=== PATIENT | female | born 2000 | race Caucasian/White ===

== ENCOUNTER 2021-03-28 12:49 | Emergency (ER) | payer SELFPAY ==
[2021-03-28 13:04] VITALS: BP 119/70; PULSE 73; RESP 20; TEMP 36.7; O2SAT 98
[2021-03-28 13:04] LABS: RBC Urine None Seen (0-5/HPF)
[2021-03-28 13:05] LABS: Appearance Urine UA CLEAR; Bilirubin Urine UA NEGATIVE (NEGATIVE); Color Urine UA ORANGE; Glucose Urine UA TRACE g/dL (Negative); Ketones Urine UA NEGATIVE (NEGATIVE); Leukocyte Esterase Urine UA 1+ (NEGATIVE); Nitrite Urine UA POSITIVE (Negative); Occult Blood Urine UA NEGATIVE (Negative); Protein Urine UA NEGATIVE (Negative); Specific Gravity Urine UA <=1.005 (1.000-1.035)
[2021-03-28 13:06] LABS: pH Urine UA 6.5 (4.5-8.0)
[2021-03-28 13:08] LABS: Bacteria Urine Few (2-10); Culture Indicated Urine Specimen Cultured; WBC Urine 1-5/HPF (0-5/HPF)
--- NOTE | 2021-03-28 13:15 | ED_ITS ---
HPI - Female Genitourinary <JOY Villarreal - Last Filed: 03/28/21 15:19> General Chief complaint: Urogenital-Female Stated complaint: Very Bad UTI, Nausea Time Seen by Provider: 03/28/21 12:53 Source: patient and family Mode of arrival: Family Vehicle Limitations: no limitations History of Present Illness HPI Narrative: The patient is a 21-year-old female former smoker with history of multiple urinary tract infections who presents with a chief complaint of UTI symptoms for 2 hours. She has taken azo. She has not been on antibiotics for few months, is not exactly sure what she was on several months ago. She states that was in [place]. She states she feels warm but denies any fevers. She does complain of nausea but thinks that might be related to the azo. She denies any muscle aches or chills, but states she feels like she has the shakes. She is eating and drinking well, drinking water throughout my evaluation. She denies any flank or back pain. Denies any vomiting or diarrhea. No specific STI concerns. She complains of dysuria, urgency and frequency as well as bladder pain/spasm. Related Data Home Medications Medication Instructions Recorded Confirmed cranberry [id number] coag 250 tab PO 1-2XD 03/28/21 03/28/21 [Azo Cranberry + Probiotic] phenazopyridine [Azo] 95 mg PO TID PRN 03/28/21 03/28/21 Previous Rx's Medication Instructions Recorded nitrofurantoin monohyd/m-cryst 100 mg PO BID #14 cap 03/28/21 [Macrobid] ondansetron 4 mg PO Q6H PRN #20 tab 03/28/21 Allergies Allergy/AdvReac Type Severity Reaction Status Date / Time No Known Drug Allergies Allergy Verified 03/28/21 13:43 Review of Systems <JOY Villarreal - Last Filed: 03/28/21 15:19> Review of Systems Narrative: GENERAL: Denies chills, fatigue, malaise, fever, sweats. HEENT: Denies sinus pain, ear pain, sore throat, difficulty swallowing, dizziness. RESPIRATORY: Denies dyspnea, cough, wheezing, hemoptysis, sputum. CARDIOVASCULAR: Denies chest pain, palpitations, orthopnea, edema, GASTROINTESTINAL: Denies nausea, vomiting, abdominal pain, diarrhea, constipation, melena. : See HPI MUSCULOSKELETAL: denies weakness, joint pain, or bony pain SKIN: Denies rash, skin lesions, or other NEUROLOGIC: Denies weakness, headache, numbness, change in speech, confusion, seizures, incoordination. PSYCHIATRIC: No concerning psychosocial issues. 12 point review of systems is negative except for those stated above Patient History <Rosa RAFAEL Brand - Last Filed: 03/28/21 15:19> alcohol intake frequency: 0-2 drinks per day Alcohol type: wine Last Alcoholic Drink: yesterday Substance Use Type: marijuana Exam <Rosa [facility]KENNY [facility] - Last Filed: 03/28/21 15:19> Narrative Exam Narrative: GENERAL: This is a well-nourished, well-developed patient, in no acute distress HEAD: Atraumatic. Normocephalic. No temporal or scalp tenderness. EYES: Pupils equal round and reactive. Extraocular motions intact. No scleral icterus. No injection or drainage. ENT: Nose without bleeding, purulent drainage or septal hematoma. Wearing a ma sk Airway patent. NECK: Trachea midline. No JVD or lymphadenopathy. Supple, nontender, no meningeal signs. CARDIOVASCULAR: Regular rate and rhythm RESPIRATORY: Clear to auscultation. Breath sounds equal bilaterally. No wheezes, rales, or rhonchi. No cough. No increased respiratory effort. No accessory muscle use. Speaking full sentences. GASTROINTESTINAL: Abdomen soft, slight pain to suprapubic palpation, nondistended. No hepato-splenomegaly, or palpable masses. No guarding. EXTREMITIES: No clubbing, cyanosis, or edema. No joint tenderness, effusion, or edema noted. BACK: Nontender without deformity or crepitance. No flank tenderness. No CVA tenderness NEURO: AOx3. SKIN: No rash or erythema on visible skin Initial Vital Signs Initial Vital Signs: Vital Signs Temperature 98.0 F 03/28/21 13:04 Pulse Rate 73 03/28/21 13:04 Respiratory Rate 20 03/28/21 13:04 Blood Pressure 119/70 03/28/21 13:04 Pulse Oximetry 98 03/28/21 13:04 <Katheryn Mortensen DO - Last Filed: 04/01/21 07:37> Initial Vital Signs Initial Vital Signs: Vital Signs Temperature 98.0 F 03/28/21 13:04 Pulse Rate 73 03/28/21 13:04 Respiratory Rate 20 03/28/21 13:04 Blood Pressure 119/70 03/28/21 13:04 Pulse Oximetry 98 03/28/21 13:04 Scores <JOY Villarreal - Last Filed: 03/28/21 15:19> GCS [place] coma scale eye opening: Spontaneous [place] coma scale verbal response: Orientated [place] coma scale motor response: Obey commands Amy coma scale total score: 15 Course <RAFAEL Villarreal - Last Filed: 03/28/21 15:19> Orders Ordered: Discontinued Medications Ondansetron HCl (Ondansetron 4 Mg Odt) 4 mg SL NOW ONE Stop: 03/28/21 13:11 Last Admin: 03/28/21 13:22 Dose: 4 mg Documented by: [email or web address] Vital Signs Vital signs: Vital Signs - 8 hr 03/28/21 13:04 Temperature 98.0 F Pulse Rate 73 Respiratory Rate 20 Blood Pressure 119/70 Pulse Oximetry 98 <Katheryn Mortensen DO - Last Filed: 04/01/21 07:37> Orders Ordered: Discontinued Medications Ondansetron HCl (Ondansetron 4 Mg Odt) 4 mg SL NOW ONE Stop: 03/28/21 13:11 Last Admin: 03/28/21 13:22 Dose: 4 mg Documented by: [email or web address] Vital Signs Vital signs: Vital Signs - 8 hr 03/28/21 13:04 Temperature 98.0 F Pulse Rate 73 Respiratory Rate 20 Blood Pressure 119/70 Pulse Oximetry 98 MDM - Female Genitourinary <RAFAEL Villarreal - Last Filed: 03/28/21 15:19> Lab Data Result diagrams: 03/28/21 13:22 03/28/21 13:22 Labs: Lab Results 03/28/21 03/28/21 03/28/21 Range/Units 13:01 13:01 13:22 WBC 8.0 (4.5-11.0) X10^3/uL RBC 4.31 (4.0-5.2) X10^6/uL Hgb 13.7 (12.0-16.0) g/dL Hct 40.1 (36-46) % MCV 93.0 (80-100) fL MCH 31.7 (26-34) PG MCHC 34.1 (30-36) % RDW 12.5 (11.6-14.8) % Plt Count 279 (150-400) X10^3/uL Neut % (Auto) 71.5 (50-75) % Lymph % (Auto) 22.1 L (25-40) % [place] % (Auto) 5.6 (3-14) % Eos % (Auto) 0.2 L (2-4) % Baso % (Auto) 0.6 (0-2) % Neut # (Auto) 5700 (6916-9466) /uL Lymph # (Auto) 1800 (2176-3776) /uL [place] # (Auto) 500 (0-900) /uL Eos # (Auto) 0 (0-450) /uL Baso # (Auto) 100 (0-100) /uL Sodium (137-145) mmol/L Potassium (3.4-5.1) mmol/L Chloride (98-107) mmol/L Carbon Dioxide (22-32) mmol/L BUN (7-17) mg/dL Creatinine (0.52-1.04) mg/dL Estimated GFR (>60) mL/min BUN/Creatinine Ratio (6-22) Glucose (70-100) mg/dL Calcium (8.4-10.2) mg/dL Total Bilirubin (0.2-1.3) mg/dL AST (14-36) IU/L ALT (<35) IU/L Alkaline Phosphatase (38-126) U/L Total Protein (6.3-8.2) g/dL Albumin (3.5-5.0) g/dL Globulin (1.7-4.1) g/dL Albumin/Globulin Ratio (1.0-2.8) Urine Color Chase Urine Appearance Clear Urine pH 6.5 (4.5-8.0) Ur Specific [place] <=1.005 (1.000-1.035) Urine Protein Negative (Negative) Urine Glucose (UA) Trace H (Negative) g/dL Urine Ketones Negative (NEGATIVE) Urine Occult Blood Negative (Negative) Urine Nitrate Positive H (Negative) Urine Bilirubin Negative (NEGATIVE) Urine Urobilinogen 1.0 (0.2) E.U./dL Ur Leukocyte Esterase 1+ H (NEGATIVE) Urine RBC None seen (0-5/HPF) Urine WBC 1-5/hpf (0-5/HPF) Urine Bacteria Few (2-10) H (None) Ur Culture Indicated? Specimen cultured Urine Test Negative (Negative) 03/28/21 Range/Units 13:22 WBC (4.5-11.0) X10^3/uL RBC (4.0-5.2) X10^6/uL Hgb (12.0-16.0) g/dL Hct (36-46) % MCV (80-100) fL MCH (26-34) PG MCHC (30-36) % RDW (11.6-14.8) % Plt Count (150-400) X10^3/uL Neut % (Auto) (50-75) % Lymph % (Auto) (25-40) % [place] % (Auto) (3-14) % Eos % (Auto) (2-4) % Baso % (Auto) (0-2) % Neut # (Auto) (0970-6349) /uL Lymph # (Auto) (6147-3467) /uL [place] # (Auto) (0-900) /uL Eos # (Auto) (0-450) /uL Baso # (Auto) (0-100) /uL Sodium 136 L (137-145) mmol/L Potassium 3.7 (3.4-5.1) mmol/L Chloride 101 (98-107) mmol/L Carbon Dioxide 25 (22-32) mmol/L BUN 7 (7-17) mg/dL Creatinine 0.59 (0.52-1.04) mg/dL Estimated GFR > 60.0 (>60) mL/min BUN/Creatinine Ratio 11.9 (6-22) Glucose 91 (70-100) mg/dL Calcium 9.9 (8.4-10.2) mg/dL Total Bilirubin 0.6 (0.2-1.3) mg/dL AST 30 (14-36) IU/L ALT 16 (<35) IU/L Alkaline Phosphatase 79 (38-126) U/L Total Protein 7.9 (6.3-8.2) g/dL Albumin 4.8 (3.5-5.0) g/dL Globulin 3.1 (1.7-4.1) g/dL Albumin/Globulin Ratio 1.5 (1.0-2.8) Urine Color Urine Appearance Urine pH (4.5-8.0) Ur Specific [place] (1.000-1.035) Urine Protein (Negative) Urine Glucose (UA) (Negative) g/dL Urine Ketones (NEGATIVE) Urine Occult Blood (Negative) Urine Nitrate (Negative) Urine Bilirubin (NEGATIVE) Urine Urobilinogen (0.2) E.U./dL Ur Leukocyte Esterase (NEGATIVE) Urine RBC (0-5/HPF) Urine WBC (0-5/HPF) Urine Bacteria (None) Ur Culture Indicated? Urine Test (Negative) MDM Narrative Medical decision making narrative: The patient is a 21-year-old female who presents with a chief complaint of urinary tract infection symptoms. Her urine is concerning for infection with bacteria and nitrates. Overall she appears well and nontoxic, though given her complaints of shaking I did get CBC CMP which illustrate no leukocytosis, normal renal function. is negative today. I did give them contact information to follow-up with the health resource recovery engineer in order to identify local primary care provider. Discussed at length strict return precautions of abdominal pain with fever, keep down fluids etcetera. Patient and mother have no questions or concerns upon discharge states understanding of return precautions as well as follow-up care. Given her nausea I did give her a small prescription of Zofran, which was very helpful in the emergency department today. <Katheryn Mortensen, - Last Filed: 04/01/21 07:37> Lab Data Labs: Lab Results 03/28/21 03/28/21 03/28/21 Range/Units 13:01 13:01 13:22 WBC 8.0 (4.5-11.0) X10^3/uL RBC 4.31 (4.0-5.2) X10^6/uL Hgb 13.7 (12.0-16.0) g/dL Hct 40.1 (36-46) % MCV 93.0 (80-100) fL MCH 31.7 (26-34) PG MCHC 34.1 (30-36) % RDW 12.5 (11.6-14.8) % Plt Count 279 (150-400) X10^3/uL Neut % (Auto) 71.5 (50-75) % Lymph % (Auto) 22.1 L (25-40) % [place] % (Auto) 5.6 (3-14) % Eos % (Auto) 0.2 L (2-4) % Baso % (Auto) 0.6 (0-2) % Neut # (Auto) 5700 (4262-0676) /uL Lymph # (Auto) 1800 (8764-7716) /uL [place] # (Auto) 500 (0-900) /uL Eos # (Auto) 0 (0-450) /uL Baso # (Auto) 100 (0-100) /uL Sodium (137-145) mmol/L Potassium (3.4-5.1) mmol/L Chloride (98-107) mmol/L Carbon Dioxide (22-32) mmol/L BUN (7-17) mg/dL Creatinine (0.52-1.04) mg/dL Estimated GFR (>60) mL/min BUN/Creatinine Ratio (6-22) Glucose (70-100) mg/dL Calcium (8.4-10.2) mg/dL Total Bilirubin (0.2-1.3) mg/dL AST (14-36) IU/L ALT (<35) IU/L Alkaline Phosphatase (38-126) U/L Total Protein (6.3-8.2) g/dL Albumin (3.5-5.0) g/dL Globulin (1.7-4.1) g/dL Albumin/Globulin Ratio (1.0-2.8) Urine Color [place] Urine Appearance Clear Urine pH 6.5 (4.5-8.0) Ur Specific [place] <=1.005 (1.000-1.035) Urine Protein Negative (Negative) Urine Glucose (UA) Trace H (Negative) g/dL Urine Ketones Negative (NEGATIVE) Urine Occult Blood Negative (Negative) Urine Nitrate Positive H (Negative) Urine Bilirubin Negative (NEGATIVE) Urine Urobilinogen 1.0 (0.2) E.U./dL Ur Leukocyte Esterase 1+ H (NEGATIVE) Urine RBC None seen (0-5/HPF) Urine WBC 1-5/hpf (0-5/HPF) Urine Bacteria Few (2-10) H (None) Ur Culture Indicated? Specimen cultured Urine Test Negative (Negative) 03/28/21 Range/Units 13:22 WBC (4.5-11.0) X10^3/uL RBC (4.0-5.2) X10^6/uL Hgb (12.0-16.0) g/dL Hct (36-46) % MCV (80-100) fL MCH (26-34) PG MCHC (30-36) % RDW (11.6-14.8) % Plt Count (150-400) X10^3/uL Neut % (Auto) (50-75) % Lymph % (Auto) (25-40) % [place] % (Auto) (3-14) % Eos % (Auto) (2-4) % Baso % (Auto) (0-2) % Neut # (Auto) (4767-7370) /uL Lymph # (Auto) (1516-9196) /uL [place] # (Auto) (0-900) /uL Eos # (Auto) (0-450) /uL Baso # (Auto) (0-100) /uL Sodium 136 L (137-145) mmol/L Potassium 3.7 (3.4-5.1) mmol/L Chloride 101 (98-107) mmol/L Carbon Dioxide 25 (22-32) mmol/L BUN 7 (7-17) mg/dL Creatinine 0.59 (0.52-1.04) mg/dL Estimated GFR > 60.0 (>60) mL/min BUN/Creatinine Ratio 11.9 (6-22) Glucose 91 (70-100) mg/dL Calcium 9.9 (8.4-10.2) mg/dL Total Bilirubin 0.6 (0.2-1.3) mg/dL AST 30 (14-36) IU/L ALT 16 (<35) IU/L Alkaline Phosphatase 79 (38-126) U/L Total Protein 7.9 (6.3-8.2) g/dL Albumin 4.8 (3.5-5.0) g/dL Globulin 3.1 (1.7-4.1) g/dL Albumin/Globulin Ratio 1.5 (1.0-2.8) Urine Color Urine Appearance Urine pH (4.5-8.0) Ur Specific [place] (1.000-1.035) Urine Protein (Negative) Urine Glucose (UA) (Negative) g/dL Urine Ketones (NEGATIVE) Urine Occult Blood (Negative) Urine Nitrate (Negative) Urine Bilirubin (NEGATIVE) Urine Urobilinogen (0.2) E.U./dL Ur Leukocyte Esterase (NEGATIVE) Urine RBC (0-5/HPF) Urine WBC (0-5/HPF) Urine Bacteria (None) Ur Culture Indicated? Urine Test (Negative) Discharge Plan Departure Patient Disposition: Home Clinical Impression: Urinary tract infection Qualifiers: Urinary tract infection type: site unspecified Hematuria presence: without hematuria Qualified Code(s): N39.0 - Urinary tract infection, site not specified Instructions: DI for Urinary Tract Infection (UTI) Activity Restrictions/Additional Instructions: Thank you for trusting us with your care today. I sent 2 prescriptions to [facility]. I sent an antibiotic for your infection as well as ondansetron for nausea. I have given you contact information to the [facility] health resource recovery engineer. They can help you establish a primary care provider in the area. We are doing a urine culture to make sure that the antibiotic chosen works best for urine infection. We will call you in a few days if we need to change your therapy. Please come back to the emergency department for any acute concerns such as i nability keep down fluids, high fevers with abdominal pain etcetera Please take a probiotic or yogurt with her antibiotics. Please rest and push fluids. Prescriptions: New ondansetron 4 mg tablet,disintegrating 4 mg PO Q6H PRN (Reason: nausea and vomiting) Qty: 20 RF: 0 nitrofurantoin monohyd/m-cryst [Macrobid] 100 mg capsule 100 mg PO BID Qty: 14 RF: 0 No Action Azo Cranberry + Probiotic 250-30-50 [id number] Tablet 250 tab PO 1-2XD RF: 0 phenazopyridine [Azo] 95 mg Tablet 95 mg PO TID PRN (Reason: Bladder Spasms) RF: 0 Referrals: [facility] [Outside] <Katheryn Mortensen, - Last Filed: 04/01/21 07:37> Cosign ED Attending Nikole Attestation: I was immediately available in the department for consultation. Documentation has been reviewed. I agree with assessment and plan.
[2021-03-28] MEDS: ONDANSETRON 4 MG ODT SL (13:22)
[2021-03-28 13:28] LABS: Add Manual Diff / Slide Review NO; Basophils Absolute Auto 100 /uL (0-100); Basophils Percent Auto 0.6 % (0-2); Eosinophils Absolute Auto 0 /uL (0-450); Eosinophils Percent Auto 0.2 % (2-4); Hematocrit 40.1 % (36-46); Hemoglobin 13.7 g/dL (12.0-16.0); Lymphocytes Absolute Auto 1800 /uL (1100-4500); Lymphocytes Percent Auto 22.1 % (25-40); Mean Corpuscular HGB Conc 34.1 % (30-36); Mean Corpuscular Hemoglobin 31.7 PG (26-34); Monocytes Absolute Auto 500 /uL (0-900); Monocytes Percent Auto 5.6 % (3-14); Neutrophils Absolute Auto 5700 /uL (1500-7000); Neutrophils Percent Auto 71.5 % (50-75); Platelet Count 279 X10^3/uL (150-400); Red Blood Cell Count 4.31 X10^6/uL (4.0-5.2); Red Cell Distribution Width 12.5 % (11.6-14.8)
[2021-03-28 13:42] LABS: Pregnancy Test Urine Negative (Negative)
[2021-03-28 13:52] LABS: Alanine Aminotransferase 16 IU/L (<35); Albumin 4.8 g/dL (3.5-5.0); Albumin Globulin Ratio 1.5 (1.0-2.8); Alkaline Phosphatase 79 U/L (38-126); Aspartate Aminotransferase 30 IU/L (14-36); BUN Creatinine Ratio 11.9 (6-22); Bilirubin Total 0.6 mg/dL (0.2-1.3); Blood Urea Nitrogen 7 mg/dL (7-17); Calcium 9.9 mg/dL (8.4-10.2); Carbon Dioxide 25 mmol/L (22-32); Chloride 101 mmol/L (98-107); Estimated Glomerular Filt Rate > 60.0 mL/min (>60); Globulin 3.1 g/dL (1.7-4.1); Glucose 91 mg/dL (70-100); HEMOLYSIS < 15 (0-50); Potassium 3.7 mmol/L (3.4-5.1); Sodium 136 mmol/L (137-145); Total Protein 7.9 g/dL (6.3-8.2)
== END 2021-03-28 14:51 | disposition home or self-care (01) ==
PROVIDERS: Emergency Provider Nurse Practitioner Family
DX: N39.0 Urinary tract infection, site not specified (principal); R11.0 Nausea
CPT/HCPCS: 36415; 80053; 81001; 81025; 85025; 87086; 99283